=== PATIENT | female | born 1990 | race Caucasian/White ===

== ENCOUNTER 2017-01-23 13:15 | Emergency (ER) | payer OTHER ==
--- NOTE | 2017-01-23 14:16 | ED Physician Documentation ---
Skin Rash - HISTORIAN Historian: patient - HPI Stated Complaint: rash Chief Complaint: Skin Rash Additional Information: has had it for 4 years. told it was tinea versicolor but no treatments have helped. it itches, she left work today Onset: other (years) Timing: still present Duration: persistent since Location: trunk Quality: itchy Identified Cause?: No Context: Medication Exposure: none Context: Food Exposure: none Context: Other Exposure: denies: poison siva Further Comments: no - ROS CONST: none CVS/RESP: none EYES/ENT: none GI/: none MS/SKIN/LYMPH: none NEURO/PSYCH: none - PAST HX Past History: none Other History: none Surgeries/Procedures: No Allergies/Adverse Reactions: Allergies Allergy/AdvReac Type Severity Reaction Status Date / Time No Known Allergies Allergy Verified 01/23/17 13:31 Home Medications: Ambulatory Orders Medication Instructions Recorded NK [NK] 01/23/17 - SOCIAL HX Smoking History: non-smoker Alcohol Use: none Drug Use: none - FAMILY HX Family History: none - VITAL SIGNS Vital Signs: Vital Signs Temp Pulse Resp BP Pulse Ox 99.0 F 83 16 114/69 99 01/23/17 13:20 01/23/17 13:20 01/23/17 13:20 01/23/17 13:20 01/23/17 13:20 - REVIEWED ASSESSMENTS Nursing Assessment Reviewed: Yes Vitals Reviewed: Yes Progress - Progress Progress: explained that 4 year chronic rash is not diagnosed in ER. she must go to dermatology. I don't recognize this rash. told her if it itches, benadryl may help, but won't resolve the rash. Skin Rash Physical Exam - EXAM General Appearance: no acute distress, alert Skin: warm,dry, cyanotic Location: trunk Character: asymmetric, maculopapular, fine, patchy, lacy Symptoms: well defined border Extremities: non-tender EENT: eyes nml inspection Neck: trachea midline Respiratory: no resp distress Abdomen: non-tender Neuro/Psych: oriented x3 Discharge Clincal Impression: Rash and nonspecific skin eruption Referrals: Primary Doctor,No [Primary Care Provider] - 2 Days Condition: Stable Disposition: 01 HOME, SELF-CARE Decision to Admit: NO Date of Decison to Admit: 01/23/17 Decision Time: 14:17
[2017-01-23 14:30] VITALS: BP 112/74
== END 2017-01-23 14:25 | disposition home or self-care (01) ==
LOC: ED 13:15
DX: R21 Rash and other nonspecific skin eruption (principal)
CPT/HCPCS: 99283

== ENCOUNTER 2017-02-12 18:08 | Emergency (ER) | payer SELFPAY ==
--- NOTE | 2017-02-12 18:30 | ED Physician Documentation ---
Abdominal Pain - HISTORIAN Historian: patient, friend - [facility] Chief Complaint: General Adult Additonal Information: nausea bloating x 2days no emesis intake output satis.menses 10 d ago pt para1-0 -many-1. pt rh neg several pregnancies but aborts spon few weeks later. upg possibly but will confirm w/ blood preg test Onset: days ago (2) Duration: waxing, waning Timing: still present Context: out of country travel. denies: bad food, recent trauma Severity: moderate Quality: denies: pain, cramping, stabbing Associated Symptoms: nausea. denies: vomiting, bloody emesis, diarrhea (normal bm yesterday) - ROS CONST: no problems GI/: denies: constipation, black stools, bloody urine, bloody stools, dark urine CVS/RESP: none EYES/ENT: denies: problems with vision MS/SKIN/LYMPH: none NEURO/PSYCH: none - SOCIAL HX Smoking History: greater than 1 pack/day Alcohol Use: none Drug Use: none - FAMILY HX Family History: no significant history - PAST HX Past History: none Surgeries/Procedures: (x1) Home Medications: Ambulatory Orders Medication Instructions Recorded Ondansetron HCl Rapdis [Zofran Odt] 4 kg SL Q4 PRN #10 tab 02/12/17 Allergies/Adverse Reactions: Allergies Allergy/AdvReac Type Severity Reaction Status Date / Time No Known Allergies Allergy Verified 02/12/17 18:30 - VITAL SIGNS Vital Signs: Vital Signs Temp Pulse Resp BP Pulse Ox 98.8 F 85 20 98/64 98 02/12/17 18:08 02/12/17 18:08 02/12/17 18:08 02/12/17 18:08 02/12/17 18:08 - REVIEWED ASSESSMENTS Nursing Assessment Reviewed: Yes Vitals Reviewed: Yes ED Results Lab/Radiology - Lab Results Lab Results: Lab Results 02/12/17 18:33 Serum HCG, Qual Negative (NEGATIVE) - Orders Orders: ED Orders Category Date Time Status SERUM HCG Routine Lab 02/12/17 18:33 Completed Abdominal Pain Physical Exam - Physical Exam General Appearance: mild distress EENT: eye inspection normal NECK: normal inspection, supple RESPIRATORY: no resp distress, breath sounds normal CVS: reg rate & rhythm, heart sounds normal ABDOMEN: soft, non-tender, distended. No: McBurney's point tenderne, guarding BACK: normal inspection, no CVA tenderness SKIN: warm/dry, normal color. No: cyanosis, diaphoresis EXTREMITIES: non-tender, normal range of motion NEURO: oriented X3, motor nml, sensation nml, mood/affect nml Vital Signs: Vital Signs Temp Pulse Resp BP Pulse Ox 98.8 F 85 20 98/64 98 02/12/17 18:08 02/12/17 18:08 02/12/17 18:08 02/12/17 18:08 02/12/17 18:08 Discharge Clincal Impression: nausea udo Prescriptions: Ondansetron HCl Rapdis [Zofran Odt] 4 kg SL Q4 PRN #10 tab PRN Reason: Nausea / Vomiting Referrals: Primary Doctor,No [Primary Care Provider] - 2 Days Comments: home zofran perhaps laxative f/u [facility] Condition: Good Disposition: 01 HOME, SELF-CARE Decision to Admit: NO Decision Time: 19:12
[2017-02-12 19:27] VITALS: BP 104/78
== END 2017-02-12 19:20 | disposition home or self-care (01) ==
LOC: ED 18:08
DX: R11.0 Nausea (principal)
CPT/HCPCS: 84703; 99283

== ENCOUNTER 2017-03-13 20:59 | Emergency (ER) | payer SELFPAY ==
[2017-03-13 21:43] LABS: BASOPHILS % 0.5 (0.0-1.5); EOSINOPHILS % 2.5 % (0.0-6.8); MEAN CORPUSCULAR HEMOGLOBIN 27.7 pg (28.0-34.0); MEAN CORPUSCULAR VOLUME 86.7 fl (80.0-100.0); MONOCYTES % 4.9 % (0.0-11.0); NEUTROPHILS # 3.7 # k/uL (1.4-7.7)
[2017-03-13 21:53] LABS: eGFR (African) > 60; eGFR (Non-African) > 60
--- NOTE | 2017-03-13 22:04 | ED Physician Documentation ---
Dizziness - HISTORIAN Historian: patient - HPI Stated Complaint: Nausea/dizziness Chief Complaint: Dizziness Worsened By: nothing Further Comments: yes (27 year old female patient presents with complaints of intermittent dizziness, States she was here 1 month ago with similar symptoms. Concerned she may be . C/O episode of nausea earlier. Denies dizziness or nausea at present.) - ROS CONST: none EYES/ENT: none GI/: none LNMP: denies: , missed periods (LMP - 2 weeks ago), heavy periods, irregualar periods MS/SKIN/LYMPH: none NEURO/PSYCH: none CVS/RESP: none - PAST HX Past History: none Allergies/Adverse Reactions: Allergies Allergy/AdvReac Type Severity Reaction Status Date / Time No Known Allergies Allergy Verified 03/13/17 21:59 Home Medications: Ambulatory Orders Medication Instructions Recorded NK [NK] 03/13/17 - SOCIAL HX Smoking History: cigarettes - FAMILY HX Family History: none - VITAL SIGNS Vital Signs: Vital Signs Temp Pulse Resp BP Pulse Ox 98.8 F 70 14 108/67 99 03/13/17 21:00 03/13/17 21:00 03/13/17 21:00 03/13/17 21:00 03/13/17 21:00 - REVIEWED ASSESSMENTS Nursing Assessment Reviewed: Yes Vitals Reviewed: Yes ED Results Lab/Radiology - Lab Results Lab Results: Lab Results 03/13/17 03/13/17 21:38 21:38 WBC 6.00 K/ul K/ul (4.00-12.00) RBC 4.53 M/ul M/ul (3.90-5.20) Hgb 12.6 g/dL g/dL (12.0-16.0) Hct 39.3 % % (34.5-46.5) MCV 86.7 fl fl (80.0-100.0) MCH 27.7 pg L pg (28.0-34.0) MCHC 32.0 g/dL g/dL (30.0-36.0) RDW 14.3 % % (11.3-14.3) Plt Count 188 K/mm3 K/mm3 (130-400) Neut % (Auto) 60.6 % % (39.0-79.0) Lymph % (Auto) 29.9 % % (16.0-50.0) Dillon % (Auto) 4.9 % % (0.0-11.0) Eos % (Auto) 2.5 % % (0.0-6.8) Baso % (Auto) 0.5 (0.0-1.5) Neut # (Auto) 3.7 # k/uL # k/uL (1.4-7.7) Lymph # (Auto) 1.8 # k/uL # k/uL (0.6-4.0) Dillon # (Auto) 0.3 # k/uL # k/uL (0.0-0.9) Eos # (Auto) 0.2 # k/uL # k/uL (0.0-0.6) Baso # (Auto) 0.0 # k/uL # k/uL (0.0-0.5) Reactive Lymphs % 1.6 % % (0.0-5.0) Reactive Lymphs # 0.1 # k/uL # k/uL (0.0-0.8) Sodium 138 mmol/L mmol/L (137-145) Potassium 3.5 mmol/L mmol/L (3.5-5.1) Chloride 103 mmol/L mmol/L (98-107) Carbon Dioxide 26 mmol/L mmol/L (22-30) BUN 12 mg/dL mg/dL (7-17) Creatinine 0.80 mg/dL mg/dL (0.52-1.04) Est GFR ( Amer) > 60 (60 - ) Est GFR (Non-Af Amer) > 60 (60 - ) Glucose 106 mg/dL mg/dL (74-106) Calcium 9.3 mg/dL mg/dL (8.4-10.2) Total Bilirubin 0.2 mg/dL mg/dL (0.2-1.3) AST 19 U/L U/L (15-46) ALT 23 U/L U/L (13-69) Alkaline Phosphatase 47 U/L U/L (38-126) Total Protein 7.2 g/dL g/dL (6.3-8.2) Albumin 4.0 g/dL g/dL (3.5-5.0) - Orders Orders: ED Orders Category Date Time Status CBC/PLATELET/DIFF Stat Lab 03/13/17 21:38 Completed CMP Stat Lab 03/13/17 21:38 Completed Rapid Strep [GRP A STREP SCREEN] Stat Lab 03/13/17 Ordered UA W/MICRO IF INDICATED Stat Lab 03/13/17 21:16 Ordered URINE HCG Stat Lab 03/13/17 21:39 Ordered Dizziness Physical Exam - Physical Exam General Appearance: [id number] N EENT: eye inspection normal, ENT inspection normal, pharynx normal, no signs of dehydration, BÁRBARA, no nystagmus, TM's nml Respiratory: no respiratory distress, breath sounds nml, chest non-tender CVS: reg rate & rhythm, heart sounds normal, equal pulses, no murmur, no gallop , PMI nml, no JVD, no friction rub, 24 Abdomen: soft, no organomegaly, normal bowel sounds, no abdominal bruit, no distension. No: McBurney's point tenderne, psoas Skin: normal color, warm/dry, NR, INT, PAL, DR Neuro: nml orientation, nml speech, nml cognition, mood/affect nml Extremities: non-tender, normal range of motion, no evidence of injury, no edema , J, SNOW BLOWER Cranial: nml as tested, no evidence of acute CVA Cerebellar: nml as tested, nml gait Sensorimotor: motor nml, sensation nml Discharge Clincal Impression: Intermittent vertigo Referrals: Primary Doctor,No [Primary Care Provider] - 2 Days Additional Instructions: electronic equipment set up operator your prescription and use it as needed for dizziness. Follow up with one of the clinics on the list provided if your symptoms do not improve. Condition: Stable Disposition: 01 HOME, SELF-CARE Decision to Admit: NO Decision Time: 22:04
[2017-03-13 22:23] VITALS: BP 108/67
[2017-03-14 05:53] LABS: APPEARANCE,URINE CLEAR (CLEAR); COLOR,URINE YELLOW (YELLOW)
[2017-03-14 05:54] LABS: OCCULT BLOOD,URINE NEGATIVE (NEGATIVE); URINE HCG NEGATIVE (NEGATIVE); UROBILINOGEN URINE 0.2 Eu (0.2-1.0)
== END 2017-03-13 22:10 | disposition home or self-care (01) ==
LOC: ED 20:59
DX: R42 Dizziness and giddiness (principal)
CPT/HCPCS: 80053; 81002; 81025; 85025; 87070; 87880; 99283

== ENCOUNTER 2017-03-31 19:45 | Emergency (ER) | payer SELFPAY ==
[2017-03-31 20:12] VITALS: BP 99/64
--- NOTE | 2017-03-31 20:14 | ED Physician Documentation ---
Nausea/Vomiting/Diarrhea - HISTORIAN Historian: patient - HPI Stated Complaint: Diarrhea yesterday/vomiting today till 15:00, had to leave work Chief Complaint: Nausea,Vomiting,Diarrhea Onset: days ago (3) Duration: none Last known Well Date: 03/31/17 Last Known Well Time: 20:00 Last known Well Code/Unknown Code: Unknown Timing: other (resolved ) Context: denies: out of country travel, bad food, recent trauma Severity: mild Further Comments: no - Associated Symptoms Vomiting: mild (she vomited 3 times yesterday ) Diarrhea: mild Abdominal Pain: none - ROS CONST: none CVS/RESP: denies: chest pain, shortness of breath, cough GI/: denies: constipation, problems urinating EYES/ENT: none MS/SKIN/LYMPH: denies: joint pain NEURO/PSYCH: denies: headache - PAST HX Past History: none Surgeries/Procedures: none Immunizations: referred to PCP Allergies/Adverse Reactions: Allergies Allergy/AdvReac Type Severity Reaction Status Date / Time No Known Allergies Allergy Verified 03/31/17 20:06 Home Medications: Ambulatory Orders Medication Instructions Recorded NK [NK] 03/31/17 - SOCIAL HX Smoking History: cigarettes - FAMILY HX Family History: none - VITAL SIGNS Vital Signs: Vital Signs Temp Pulse Resp BP Pulse Ox 98.5 F 85 14 99/64 97 03/31/17 19:46 03/31/17 19:46 03/31/17 19:46 03/31/17 19:46 03/31/17 19:46 Nausea Physical Exam - EXAM General Appearance: no acute distress, alert EENT: eye inspection normal Respiratory: no resp distress, chest non-tender, breath sounds normal CVS: reg rate & rhythm, heart sounds normal, no murmur Abdomen: non-tender. No: tenderness, guarding, abnml bowel sounds Skin: warm/dry, normal color Extremities: non-tender, normal range of motion Neuro/Psych: oriented X3, CN's nml as tested, motor nml, sensation nml Discharge Clincal Impression: Diarrhea Qualifiers: Diarrhea type: unspecified type Qualified Code(s): R19.7 - Diarrhea, unspecified Referrals: Primary Doctor,No [Primary Care Provider] - 2 Days Condition: Stable Decision to Admit: NO Date of Decison to Admit: 03/31/17 Decision Time: 20:15
== END 2017-03-31 20:25 | disposition home or self-care (01) ==
LOC: ED 19:45
DX: R19.7 Diarrhea, unspecified (principal)
CPT/HCPCS: 99283

== ENCOUNTER 2017-04-06 11:48 | Emergency (ER) | payer SELFPAY ==
--- NOTE | 2017-04-06 11:52 | ED Physician Documentation ---
General Adult - HISTORIAN Historian: patient, spouse - HPI Stated Complaint: abdominal pain Chief Complaint: Abdominal Pain Onset: hours (5) Timing: pain intermittent Severity: mild Modifying Factors: improves with sitting and resting Further Comments: yes (she has had some cramps for the day. She states they are on and off. Denies any vaginal bleeding. She is not sure on her dates. She has had 7 miscarriages. No fever) Last known Well Code/Unknown Code: Unknown - ROS CONST: denies: fever, recent illness EYES/ENT: denies: sore throat CVS/RESP: denies: cough GI/: denies: problems urinating, vomiting, nausea - PAST HX Past History: none Other History: none Surgeries/Procedures: other (C section ) Allergies/Adverse Reactions: Allergies Allergy/AdvReac Type Severity Reaction Status Date / Time No Known Allergies Allergy Verified 04/06/17 12:12 Home Medications: Ambulatory Orders Medication Instructions Recorded NK [NK] 03/31/17 - SOCIAL HX Smoking History: non-smoker Alcohol Use: none Drug Use: none - FAMILY HX Family History: No - VITAL SIGNS Vital Signs: Vital Signs Temp Pulse Resp BP Pulse Ox 99/64 03/31/17 20:39 - REVIEWED ASSESSMENTS Nursing Assessment Reviewed: Yes Vitals Reviewed: Yes General Adult Physical Exam - PHYSICAL EXAM GENERAL APPEARANCE: no distress EENT: eye inspection normal NECK: normal inspection RESPIRATORY: no resp distress, chest non-tender, breath sounds normal CVS: reg rate & rhythm, heart sounds normal, equal pulses, no murmur ABDOMEN: soft, no organomegaly, normal bowel sounds, no distension BACK: normal inspection SKIN: warm/dry, normal color EXTREMITIES: non-tender NEURO: oriented X3, CN's nml as tested Discharge Clincal Impression: Qualifiers: Weeks of gestation: less than 8 weeks Qualified Code(s): Z3A.01 - Less than 8 weeks gestation of Referrals: Primary Doctor,No [Primary Care Provider] - 2 Days Condition: Stable Disposition: HOME, SELF-CARE Decision to Admit: NO Date of Decison to Admit: 04/06/17 Decision Time: 12:18
[2017-04-06 12:12] VITALS: BP 110/72
== END 2017-04-06 12:25 | disposition home or self-care (01) ==
LOC: ED 11:48
DX: R10.9 Unspecified abdominal pain (principal); Z3A.01 Less than 8 weeks gestation of pregnancy
CPT/HCPCS: 99283

== ENCOUNTER 2017-04-08 19:18 | Emergency (ER) | payer SELFPAY ==
[2017-04-08 20:56] VITALS: BP 90/60
--- NOTE | 2017-04-08 21:54 | ED Physician Documentation ---
Abdominal Pain - HISTORIAN Historian: patient, spouse - HPI Stated Complaint: LUQ PAIN Chief Complaint: Abdominal Pain Additonal Information: pt recently has had recurrent luq abd pain which is non existant at this time. she has appt w/OB friday next. she has one child at [facility] was rh neg w/rh pos baby but did not get rhogam. she has had miscarriages since. Onset: days ago (2weeks) Duration: other (intermittent always ulq but absdent at this visit. she states bm's are ok and normal brown color.) Context: denies: out of country travel, bad food, recent trauma Severity: mild, moderate Quality: pain, sharp Associated Symptoms: none. denies: fever, chills, nausea, vomiting, diarrhea, bloody stools, loss of appetite, chest pain, back pain Exacerbated by: other (unknown-described as mild to mod) - ROS CONST: no problems GI/: none CVS/RESP: none EYES/ENT: denies: problems with vision MS/SKIN/LYMPH: none NEURO/PSYCH: none - SOCIAL HX Smoking History: less than 1 pack/day Alcohol Use: none Drug Use: none - FAMILY HX Family History: no significant history - PAST HX Past History: none Surgeries/Procedures: none Home Medications: Ambulatory Orders Medication Instructions Recorded NK [NK] 03/31/17 Allergies/Adverse Reactions: Allergies Allergy/AdvReac Type Severity Reaction Status Date / Time No Known Allergies Allergy Verified 04/08/17 19:54 - VITAL SIGNS Vital Signs: Vital Signs Temp Pulse Resp BP Pulse Ox 98.3 F 80 16 90/60 99 04/08/17 20:51 04/08/17 20:51 04/08/17 20:51 04/08/17 20:51 04/08/17 20:51 - REVIEWED ASSESSMENTS Nursing Assessment Reviewed: Yes Vitals Reviewed: Yes Abdominal Pain Physical Exam - Physical Exam General Appearance: no acute distress, alert NECK: normal inspection, supple RESPIRATORY: no resp distress, chest non-tender, breath sounds normal CVS: heart sounds normal ABDOMEN: soft, non-tender, abnormal bowel sounds (hyper all quadrants) SKIN: warm/dry, normal color. 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
== END 2017-04-08 20:51 | disposition home or self-care (01) ==
LOC: ED 19:18
DX: R10.12 Left upper quadrant pain (principal)
CPT/HCPCS: 99283

== ENCOUNTER 2018-09-20 16:00 | Emergency (ER) | payer SELFPAY ==
[2018-09-20 16:22] VITALS: BP 122/78
--- NOTE | 2018-09-20 16:23 | ED Physician Documentation ---
Fall - HISTORIAN Historian: patient - HPI Chief Complaint: Fall (Elbow injury) Additional Information: Patient is a 28-year-old female that presents to the ER with S.O. with c/o left elbow injury. Yesterday they were at a truck stop getting fuel and she went to step over the gas line and tripped and fell injuring the left elbow. There is no obvious deformity or skin issues. Onset: yesterday Where: other (Gas Station) Context: tripped (over a gas pump hose) r: mild Associated Symptoms:: no loss of consciousness Location of Pain/Injury: upper extremity (left elbow) Injury to Right Extremity: none Injury to Left Extremity: elbow Further Comments: no - ROS CONST: no problems NEURO: denies: dizziness MS/SKIN/LYMPH: denies: back pain EYES/ENT: none CVS/RESP: none GI/: denies: nausea, vomiting - PAST HX Past History: other (Tinea Vesicolor, ) Allergies/Adverse Reactions: Allergies Allergy/AdvReac Type Severity Reaction Status Date / Time No Known Allergies Allergy Verified 09/20/18 16:22 Home Medications: Ambulatory Orders Medication Instructions Recorded Medroxyprogesterone Acetate 150 mg IM Q3M 09/20/18 [Depo-Provera] - SOCIAL HX Smoking History: less than 1 pack/day Alcohol Use: none Drug Use: none - FAMILY HX Family History: none - VITAL SIGNS Vital Signs: Vital Signs Temp Pulse Resp BP Pulse Ox 90/60 04/08/17 20:51 - REVIEWED ASSESSMENTS Nursing Assessment Reviewed: Yes Vitals Reviewed: Yes ED Results Lab/Radiology - Radiology Radiology Impressions: Left elbow three views History: Pain after fall Findings: An elbow joint effusion is present without visible fracture, d islocation, arthropathy, or focal bone lesion. Electronically signed on September 20, 2018 4:50:35 PM CDT by: Butch Perez - Orders Orders: ED Orders Category Date Time Status ELBOW 3 VIEWS [RAD] Stat Exams 09/20/18 Ordered Fall Physical Exam - Physical Exam General Appearance: alert, mild distress Head: no obvious injury Neck: non-tender Eye: BÁRBARA, lids & conjunct. nml ENT: airway nml Neuro: oriented x3, CN's nml as tested, sensation nml, motor nml, mood/affect nml, assembler rubber footwear nml Skin: color nml Back: normal inspection Extremities: nml color/temp Joint: limited ROM - [place] Coma Score Eyes Open: Spontaneous Speech: Oriented Motor: Obeys Commands Discharge Clincal Impression: Injury of elbow, left Referrals: Primary Doctor,No [Primary Care Provider] - 2 Days Additional Instructions: May use jay wrap and sling for comfort Use ice for swelling Alternate Tylenol and Ibuprofen as needed for discomfort Follow up with PCP as needed Condition: Good Disposition: 01 HOME, SELF-CARE Decision to Admit: NO Decision Time: 16:58
--- NOTE | 2018-09-20 16:58 | Diagnostic Imaging Report ---
[facility] [id number] [id number] Report Submission Date: September 20, 2018 4:50:35 PM CDT Patient Study Name: ROME TUCKER Date: September 20, 2018 4:24:20 PM CDT Modality Type: DX Gender: F Description: ELBOW 3 VIEWS : 91 Institution: [facility] Physician: [facility] Left elbow three views History: Pain after fall Findings: An elbow joint effusion is present without visible fracture, dislocation, arthropathy, or focal bone lesion. Electronically signed on September 20, 2018 4:50:35 PM CDT by: Buthc RYAN
== END 2018-09-20 17:14 | disposition home or self-care (01) ==
LOC: ED 16:00
DX: M25.422 Effusion, left elbow (principal); S59.902A Unspecified injury of left elbow, initial encounter; W01.0XXA Fall on same level from slipping, tripping and stumbling without subsequent striking against object, initial encounter; Y93.89 Activity, other specified; Y92.524 Gas station as the place of occurrence of the external cause
CPT/HCPCS: 29260; 73080; 81025; 99283